=== PATIENT | female | born 1945 | race Caucasian/White ===

== ENCOUNTER 2021-10-03 13:24 | Inpatient (IN) | payer MEDICAID, OTHER ==
[~2021-10-03] VITALS: Ht 167.6 cm; Wt 118.4 kg
[2021-10-03] MEDS ORDERED: ALUM & MAG HYDROX-SIMETH LIQ(MAALOX) 30 ML PO ONE (14:00)
[2021-10-03] MEDS ORDERED: ONDANSETRON HCL 4 MG/2 ML VIAL IV ONE (14:00)
[2021-10-03] MEDS ORDERED: LIDOCAINE VISCOUS 2% 15ML UD PO ONE (14:00)
[2021-10-03] MEDS ORDERED: FAMOTIDINE (10MG/ML) 2ML VL IV ONE (14:00)
[2021-10-03 14:43] LABS: Basophils # (auto) 0 10 ^3/uL (0-0.2); Eosinophils # (auto) 0 10 ^3/uL (0-0.8); Hematocrit 56.9 % (36.0-46.0); Hemoglobin 18.9 g/dL (12.2-16.2); Lymphocytes # (auto) 0.9 10 ^3/uL (0.4-5.4); Lymphocytes % (auto) 7.5 % (10.0-50.0); Mean Corpuscular Hemoglobin 27.1 pg (28.0-32.0); Mean Corpuscular Hgb Conc. 33.2 g/dL (32.0-36.0); Mean Corpuscular Volume 81.7 fL (80.0-100.0); Monocytes # (auto) 1.1 10 ^3/uL (0-1.3); Monocytes % (auto) 8.6 % (0.0-12.0); Neutrophils # (auto) 10.6 10 ^3/uL (1.6-8.6); Neutrophils % (auto) 83.9 % (37.0-80.0); Nucleated Red Blood Cells % 0.1 %; Red Blood Cells 6.96 10^6/uL (4.0-5.20); Red Cell Distribution Width 15.1 % (11.8-14.3); White Blood Cell 12.6 10^3/uL (4.4-10.8)
[2021-10-03] MEDS ORDERED: OMNIPAQUE ORAL SOLN 500ml 12mg/ml PO ONE ×2 (14:50→17:05)
[2021-10-03 15:00] LABS: Albumin 3.6 g/dL (3.4-5.0); BUN/Creatinine Ratio 11.6; Calcium 9.3 mg/dL (8.5-10.1); Magnesium 3.3 mg/dL (1.6-2.6); Total Protein 9.5 g/dL (6.4-8.2)
[2021-10-03] MEDS ORDERED: LACTATED RINGER'S 1,000 ML IV ONE ×2 (15:00→15:15)
[2021-10-03 15:09] LABS: Potassium 2.8 mmol/L (3.5-5.1)
[2021-10-03] MEDS ORDERED: SODIUM CHLORIDE 0.9% 1,000 ML IV ONE (15:45)
[2021-10-03] MEDS: POTASSIUM CHL 10MEQ/50ML 50 ML IV SCH ×2 (15:50→16:46)
[2021-10-03 15:53] LABS: Lactic Acid w/Reflex 4.9 mmol/L (0.4-2.0)
[2021-10-03] MEDS ORDERED: DEXTROSE (50%) 50ML SYRG IV PRN (16:30)
[2021-10-03] MEDS ORDERED: PANTOPRAZOLE 40 MG/10 ML VIAL INJ IV ONE (16:30)
[2021-10-03] MEDS ORDERED: MORPHINE SULFATE INJECTION 2 MG/ML SYRG IV PRN (16:30)
[2021-10-03] MEDS ORDERED: NITROGLYCERIN 0.4 MG SL TAB SL PRN (16:30)
[2021-10-03] MEDS ORDERED: POTASSIUM CHL 10MEQ/50ML 50 ML IV SCH (16:30)
[2021-10-03] MEDS: SOD CHL 0.9%/ KCL 40MEQ 1,000 ML IV SCH (16:30)
[2021-10-03 19:06] LABS: BUN/Creatinine Ratio 12.7; Calcium 8.6 mg/dL (8.5-10.1); Potassium 3.3 mmol/L (3.5-5.1)
[2021-10-03 19:06] LABS: Magnesium 2.6 mg/dL (1.6-2.6)
[2021-10-03] MEDS: ACCU-CHEK COMFORT CURVE STRIP VI SCH ×2 (19:08→21:45)
[2021-10-03] MEDS: InsuLIN REG 1unit/0.01ml Soln (100units/ml) SC SCH ×2 (19:12→22:01)
[2021-10-03 19:16] LABS: Phosphorus 10.4 mg/dL (2.5-4.90)
[2021-10-03] MEDS ORDERED: SODIUM CHLORIDE 0.9% 2,000 ML IV ONE (19:45)
[2021-10-03] MEDS ORDERED: CALCIUM ACETATE 667 MG CAP PO ONE (19:45)
[2021-10-03] MEDS ORDERED: cefTRIAXone 1GM/50ML D5W 50 ML IV ONE (20:00)
[2021-10-03] MEDS ORDERED: metroNIDAZOLE 500MG/100ML 100 ML IV ONE (20:00)
[2021-10-03] MEDS ORDERED: LORazepam 0.5 MG TAB PO PRN (20:15)
[2021-10-03] MEDS ORDERED: DOCUSATE SOD 100 MG CAP PO PRN (20:15)
[2021-10-03] MEDS ORDERED: LACTULOSE 20Gm/30ML SOLN PO PRN (20:15)
[2021-10-03] MEDS ORDERED: ONDANSETRON HCL 4 MG/2 ML VIAL IV PRN (20:15)
[2021-10-03] MEDS ORDERED: HYDROcodone-ACET 5/325MG TAB PO ONE (20:15)
[2021-10-03] MEDS ORDERED: HYDROcodone-ACET 5/325MG TAB PO PRN ×2 (20:15)
[2021-10-03] MEDS ORDERED: IPRATROPIUM BROM 0.5 MG/2.5ML INH SOL NEB ONE (20:15)
[2021-10-03] MEDS ORDERED: hydrALAZINE HCL 20 MG/ML VL IV PRN (20:15)
[2021-10-03 20:21] LABS: Urine Amorphous Crystal FEW /hpf (None Seen); Urine Bacteria NONE SEEN /hpf (None Seen); Urine Blood 2+ /uL (Negative); Urine Hyaline Cast FEW /lpf (0 - 2); Urine Mucus FEW (None Seen); Urine Specific Gravity 1.016 (1.001-1.035); Urine WBC 3 /hpf (0 - 5); Urine WBC Clumps PRESENT /hpf (None Seen)
[2021-10-03 20:52] LABS: Amphetamine Screen, Urine NEGATIVE (NEGATIVE); Barbiturate Scree,Urine NEGATIVE (NEGATIVE); Benzodiazephine Screen, Urine NEGATIVE (NEGATIVE); Cannabinoid Screen, Urine NEGATIVE (NEGATIVE); Cocaine Screen, Urine NEGATIVE (NEGATIVE); Opiate Scree,Urine NEGATIVE (NEGATIVE); Phencyclidine Screen, Urine NEGATIVE (NEGATIVE)
[2021-10-03 21:21] LABS: Protein, Urine 245.7 mg/dL (0.0-11.9)
[2021-10-03] MEDS: ATORVASTATIN 20 MG TAB PO SCH (22:00)
[2021-10-03] MEDS: IPRATROPIUM BROM 0.5 MG/2.5ML INH SOL NEB SCH (22:04)
[2021-10-03] MEDS: PANTOPRAZOLE 40 MG/10 ML VIAL INJ IV SCH (22:05)
[2021-10-03 22:21] LABS: INR 1.07 (0.9-1.15); Partial Thromboplastin Time 26.6 sec (23.6-33.0)
[2021-10-03 23:00] VITALS: BP_SYST 113; BP_SYST 132; BP_DIAS 54; BP_DIAS 65
[2021-10-04] MEDS ORDERED: IBUP400T22 PO (01:02)
[2021-10-04] MEDS: IPRATROPIUM BROM 0.5 MG/2.5ML INH SOL NEB SCH ×2 (01:22→05:58)
[2021-10-04] MEDS: SOD CHL 0.9%/ KCL 40MEQ 1,000 ML IV SCH ×2 (01:50→09:10)
[2021-10-04] MEDS: metroNIDAZOLE 500MG/100ML 100 ML IV SCH ×3 (04:14→21:09)
[2021-10-04 05:00] VITALS: BP 123/58
[2021-10-04] MEDS: InsuLIN REG 1unit/0.01ml Soln (100units/ml) SC SCH ×4 (06:06→22:00)
[2021-10-04] MEDS: ACCU-CHEK COMFORT CURVE STRIP VI SCH ×4 (06:07→22:20)
[2021-10-04 07:55] LABS: Hematocrit 47.8 % (36.0-46.0); Hemoglobin 16.2 g/dL (12.2-16.2); Mean Corpuscular Hemoglobin 27.5 pg (28.0-32.0); Mean Corpuscular Hgb Conc. 33.9 g/dL (32.0-36.0); Mean Corpuscular Volume 80.9 fL (80.0-100.0); Red Cell Distribution Width 14.7 % (11.8-14.3); White Blood Cell 10.3 10^3/uL (4.4-10.8)
[2021-10-04 07:56] LABS: Basophils % (manual) 0 (0.0-2.0); Blast Cells 0; Eosinophils % (manual) 0 (0-7); Metamyelocytes % 0; Myelocytes % 0; Promyelocytes % 0; Reactive Lymphocytes 0
[2021-10-04 08:12] LABS: Albumin 2.2 g/dL (3.4-5.0)
[2021-10-04 08:18] LABS: INR 1.09 (0.9-1.15); Partial Thromboplastin Time 26.8 sec (23.6-33.0)
[2021-10-04 08:21] LABS: Bilirubin, Total 0.5 mg/dL (0.2-1.0); CRP High Sensitivity 10.6 mg/dL (< 0.3); Phosphorus 7.7 mg/dL (2.5-4.90); Total Protein 5.7 g/dL (6.4-8.2); Uric Acid 16.3 mg/dL (2.6-6.0)
[2021-10-04] MEDS: CALCIUM ACETATE 667 MG CAP PO SCH ×3 (08:24→18:00)
[2021-10-04 08:25] VITALS: BP 125/80
[2021-10-04] MEDS: cefTRIAXone 1GM/50ML D5W 50 ML IV SCH (08:25)
[2021-10-04 08:37] LABS: Band Neutrophils % (manual) 10; Lymphocytes % (manual) 9 (10.0-50.0); Monocytes % (manual) 9 (0-12)
[2021-10-04 09:00] VITALS: BP 125/80
[2021-10-04] MEDS: PANTOPRAZOLE 40 MG/10 ML VIAL INJ IV SCH ×2 (10:24→21:10)
[2021-10-04] MEDS: ASPirin 81 mg TAB PO SCH (10:24)
[2021-10-04] MEDS: ENOXAPARIN SOD 30 MG/0.3 ML SYRINGE SC SCH (10:25)
[2021-10-04 15:08] LABS: BUN/Creatinine Ratio 15.5; Calcium 8.6 mg/dL (8.5-10.1); Potassium 3.8 mmol/L (3.5-5.1)
[2021-10-04] MEDS ORDERED: SODIUM CHLORIDE 0.9% 1,000 ML IV SCH (16:45)
[2021-10-04] MEDS ORDERED: FUROSEMIDE 100 MG/10ML VIAL IV ONE (16:45)
[2021-10-04] MEDS: POTASSIUM CHL 10MEQ/50ML 50 ML IV SCH ×3 (16:55→21:45)
[2021-10-04 17:00] VITALS: BP 122/54
[2021-10-04] MEDS: ATORVASTATIN 20 MG TAB PO SCH (21:10)
[2021-10-04 21:30] VITALS: BP 113/56
[2021-10-04] MEDS: SODIUM CHLORIDE 0.9% 1,000 ML IV SCH (21:44)
[2021-10-05] VITALS (9 sets, daily range): BP systolic 108–151; BP diastolic 58–67
[2021-10-05] MEDS: InsuLIN REG 1unit/0.01ml Soln (100units/ml) SC SCH ×4 (06:55→22:00)
[2021-10-05] MEDS: ACCU-CHEK COMFORT CURVE STRIP VI SCH ×4 (06:58→22:00)
[2021-10-05] MEDS: metroNIDAZOLE 500MG/100ML 100 ML IV SCH ×3 (06:58→18:28)
[2021-10-05] MEDS: SODIUM CHLORIDE 0.9% 1,000 ML IV SCH ×2 (07:00→17:55)
[2021-10-05] MEDS: cefTRIAXone 1GM/50ML D5W 50 ML IV SCH (08:32)
[2021-10-05] MEDS: CALCIUM ACETATE 667 MG CAP PO SCH ×3 (08:32→18:00)
[2021-10-05] MEDS: PANTOPRAZOLE 40 MG/10 ML VIAL INJ IV SCH ×2 (09:29→23:24)
[2021-10-05] MEDS: ENOXAPARIN SOD 30 MG/0.3 ML SYRINGE SC SCH (09:30)
[2021-10-05] MEDS: ASPirin 81 mg TAB PO SCH (09:30)
[2021-10-05 10:22] LABS: Anion Gap 13 (5-15); BUN/Creatinine Ratio 19.8; Calcium 8.3 mg/dL (8.5-10.1); Carbon Dioxide 22 mmol/L (21-32); Chloride 95 mmol/L (98-107); GFR African American 9 mL/min; GFR Non-African American 7 mL/min; Glucose 108 mg/dL (74-106); Potassium 3.6 mmol/L (3.5-5.1); Sodium 130 mmol/L (136-145)
[2021-10-05 10:31] LABS: Blood Urea Nitrogen 118 mg/dL (7-18)
[2021-10-05] MEDS ORDERED: MIDAZOLAM HCL 2MG/2ML 2ml VIAL (1mg/ml) ONE (14:33)
[2021-10-05] MEDS ORDERED: fentaNYL CITRATE 5 ML ONE (14:33)
[2021-10-05] MEDS ORDERED: fentaNYL CITRATE 100 MCG/2 ML VL ONE (14:48)
[2021-10-05] MEDS ORDERED: HYDROmorphone HCL 2 MG/ML VL ONE (15:09)
[2021-10-05] MEDS ORDERED: SUCCINYLCHOLINE CHLORIDE 20 MG/ML 10ML VIAL IV ONE (15:22)
[2021-10-05] MEDS ORDERED: ROCURONIUM 10MG/ML 10ML VIAL IV ONE (15:23)
[2021-10-05] MEDS ORDERED: PHENYLEPHRINE HCL 10 MG/ML VL IV ONE (15:34)
[2021-10-05] MEDS ORDERED: ETOMIDATE (2MG/ML) 20ML VIAL IV ONE (15:34)
[2021-10-05] MEDS ORDERED: POVIDONE IODINE 10 % TOPICAL OINT 30GM TOP ONE (17:22)
[2021-10-05] MEDS ORDERED: MIDAZOLAM DRIP 50 mg/50mL 50 ML IV ONE (17:28)
[2021-10-05] MEDS: NOREPINEPHRINE 8 MG/250ML KIT 250 ML IV SCH (17:30)
[2021-10-05] MEDS: MIDAZOLAM DRIP 50 mg/50mL 50 ML IV SCH ×2 (18:00→22:20)
[2021-10-05] MEDS: ATORVASTATIN 20 MG TAB PO SCH (22:00)
[2021-10-05] MEDS: MORPHINE SULFATE INJECTION 2 MG/ML SYRG IV PRN (22:21)
[2021-10-05 22:29] LABS: BUN/Creatinine Ratio 24.5; Calcium 8.3 mg/dL (8.5-10.1); Magnesium 2.3 mg/dL (1.6-2.6); Potassium 3.4 mmol/L (3.5-5.1)
[2021-10-05 22:34] LABS: Basophils # (auto) 0.2 10 ^3/uL (0-0.2); Basophils % (auto) 1.7 % (0.0-2.0); Eosinophils # (auto) 0.1 10 ^3/uL (0-0.8); Eosinophils % (auto) 0.5 % (0.0-7.0); Hemoglobin 16.7 g/dL (12.2-16.2); Lymphocytes # (auto) 0.9 10 ^3/uL (0.4-5.4); Lymphocytes % (auto) 6.9 % (10.0-50.0); Mean Corpuscular Hemoglobin 27.4 pg (28.0-32.0); Mean Corpuscular Hgb Conc. 32.2 g/dL (32.0-36.0); Monocytes # (auto) 1.9 10 ^3/uL (0-1.3); Monocytes % (auto) 14.7 % (0.0-12.0); Neutrophils # (auto) 10.1 10 ^3/uL (1.6-8.6); Neutrophils % (auto) 76.2 % (37.0-80.0); Red Blood Cells 6.11 10^6/uL (4.0-5.20); Red Cell Distribution Width 14.7 % (11.8-14.3); White Blood Cell 13.3 10^3/uL (4.4-10.8)
[2021-10-05] MEDS: fentaNYL Drip 2500mCg/250mlNS 250 ML IV SCH (22:36)
[2021-10-06] VITALS (60 sets, daily range): BP systolic 61–140; BP diastolic 50–79
[2021-10-06] MEDS: SODIUM CHLORIDE 0.9% 1,000 ML IV SCH ×4 (02:21→19:30)
[2021-10-06 03:57] LABS: Calcium 8.2 mg/dL (8.5-10.1); Potassium 3.5 mmol/L (3.5-5.1)
[2021-10-06 04:00] LABS: BUN/Creatinine Ratio 24.9
[2021-10-06] MEDS: metroNIDAZOLE 500MG/100ML 100 ML IV SCH ×3 (05:00→20:34)
[2021-10-06] MEDS: ACCU-CHEK COMFORT CURVE STRIP VI SCH ×4 (07:00→22:09)
[2021-10-06] MEDS: InsuLIN REG 1unit/0.01ml Soln (100units/ml) SC SCH ×4 (07:00→22:00)
[2021-10-06] MEDS: MIDAZOLAM DRIP 50 mg/50mL 50 ML IV SCH (07:10)
[2021-10-06] MEDS: CALCIUM ACETATE 667 MG CAP PO SCH ×3 (08:00→17:52)
[2021-10-06] MEDS: ASPirin 81 mg TAB PO SCH (10:00)
[2021-10-06] MEDS: cefTRIAXone 1GM/50ML D5W 50 ML IV SCH (10:09)
[2021-10-06] MEDS: PANTOPRAZOLE 40 MG/10 ML VIAL INJ IV SCH ×2 (10:12→22:09)
[2021-10-06] MEDS: ENOXAPARIN SOD 30 MG/0.3 ML SYRINGE SC SCH (10:12)
[2021-10-06 11:06] LABS: Hematocrit 45.8 % (36.0-46.0); Hemoglobin 14.6 g/dL (12.2-16.2); Mean Corpuscular Hemoglobin 27.4 pg (28.0-32.0); Mean Corpuscular Volume 85.6 fL (80.0-100.0); Red Blood Cells 5.35 10^6/uL (4.0-5.20); Red Cell Distribution Width 14.9 % (11.8-14.3); White Blood Cell 12.8 10^3/uL (4.4-10.8)
[2021-10-06 11:09] LABS: Basophils % (manual) 0 (0.0-2.0); Blast Cells 0; Eosinophils % (manual) 0 (0-7); Metamyelocytes % 0; Myelocytes % 0; Promyelocytes % 0; Reactive Lymphocytes 0
[2021-10-06 13:53] LABS: Band Neutrophils % (manual) 11; Lymphocytes % (manual) 5 (10.0-50.0); Monocytes % (manual) 11 (0-12)
[2021-10-06] MEDS: MORPHINE SULFATE INJECTION 2 MG/ML SYRG IV PRN (15:28)
[2021-10-06] MEDS: NOREPINEPHRINE 8 MG/250ML KIT 250 ML IV SCH (17:30)
[2021-10-06] MEDS: ATORVASTATIN 20 MG TAB PO SCH (20:31)
[2021-10-06] MEDS: fentaNYL Drip 2500mCg/250mlNS 250 ML IV SCH (22:30)
[2021-10-07] VITALS (14 sets, daily range): BP systolic 94–145; BP diastolic 17–78
[2021-10-07 03:54] LABS: Hemoglobin 13.6 g/dL (12.2-16.2); Mean Corpuscular Hemoglobin 27.5 pg (28.0-32.0); Mean Corpuscular Hgb Conc. 33.1 g/dL (32.0-36.0); Mean Corpuscular Volume 83.1 fL (80.0-100.0); Red Blood Cells 4.94 10^6/uL (4.0-5.20); Red Cell Distribution Width 14.9 % (11.8-14.3)
[2021-10-07 03:58] LABS: Basophils % (manual) 0 (0.0-2.0); Blast Cells 0; Metamyelocytes % 0; Myelocytes % 0; Promyelocytes % 0; Reactive Lymphocytes 0
[2021-10-07 04:01] LABS: BUN/Creatinine Ratio 30.6; Calcium 8.4 mg/dL (8.5-10.1); Potassium 3.1 mmol/L (3.5-5.1)
[2021-10-07] MEDS: metroNIDAZOLE 500MG/100ML 100 ML IV SCH ×3 (04:28→23:42)
[2021-10-07] MEDS: ACCU-CHEK COMFORT CURVE STRIP VI SCH ×4 (06:49→23:42)
[2021-10-07] MEDS: InsuLIN REG 1unit/0.01ml Soln (100units/ml) SC SCH ×4 (06:49→22:00)
[2021-10-07] MEDS: CALCIUM ACETATE 667 MG CAP PO SCH ×3 (08:00→18:00)
[2021-10-07] MEDS: cefTRIAXone 1GM/50ML D5W 50 ML IV SCH (09:23)
[2021-10-07] MEDS: PANTOPRAZOLE 40 MG/10 ML VIAL INJ IV SCH ×2 (09:37→23:41)
[2021-10-07] MEDS: SODIUM CHLORIDE 0.9% 1,000 ML IV SCH (09:37)
[2021-10-07] MEDS: ASPirin 81 mg TAB PO SCH (09:38)
[2021-10-07] MEDS: ENOXAPARIN SOD 30 MG/0.3 ML SYRINGE SC SCH (09:38)
[2021-10-07] MEDS: POTASSIUM CHL 10MEQ/50ML 50 ML IV SCH ×4 (10:57→13:10)
[2021-10-07] MEDS: SOD CHL 0.45% 1,000 ML IV SCH ×2 (10:59→18:00)
[2021-10-07 14:24] LABS: Band Neutrophils % (manual) 4; Eosinophils % (manual) 4 (0-7); Lymphocytes % (manual) 9 (10.0-50.0); Monocytes % (manual) 11 (0-12)
[2021-10-07] MEDS: ATORVASTATIN 20 MG TAB PO SCH (23:41)
[2021-10-08] MEDS: SOD CHL 0.45% 1,000 ML IV SCH (02:00)
[2021-10-08 05:00] VITALS: BP 146/75
[2021-10-08 06:23] LABS: Basophils # (auto) 0 10 ^3/uL (0-0.2); Basophils % (auto) 0.2 % (0.0-2.0); Eosinophils # (auto) 0.4 10 ^3/uL (0-0.8); Eosinophils % (auto) 4.5 % (0.0-7.0); Hematocrit 39.4 % (36.0-46.0); Hemoglobin 13.3 g/dL (12.2-16.2); Lymphocytes # (auto) 0.7 10 ^3/uL (0.4-5.4); Lymphocytes % (auto) 7.8 % (10.0-50.0); Mean Corpuscular Hemoglobin 27.9 pg (28.0-32.0); Mean Corpuscular Hgb Conc. 33.7 g/dL (32.0-36.0); Mean Corpuscular Volume 82.7 fL (80.0-100.0); Monocytes # (auto) 0.9 10 ^3/uL (0-1.3); Monocytes % (auto) 10.9 % (0.0-12.0); Neutrophils # (auto) 6.6 10 ^3/uL (1.6-8.6); Neutrophils % (auto) 76.6 % (37.0-80.0); Red Blood Cells 4.77 10^6/uL (4.0-5.20); Red Cell Distribution Width 15.2 % (11.8-14.3); White Blood Cell 8.6 10^3/uL (4.4-10.8)
[2021-10-08 06:37] LABS: Calcium 8.6 mg/dL (8.5-10.1); Potassium 3.4 mmol/L (3.5-5.1)
[2021-10-08] MEDS: metroNIDAZOLE 500MG/100ML 100 ML IV SCH ×3 (06:38→21:56)
[2021-10-08 06:39] LABS: BUN/Creatinine Ratio 34.5
[2021-10-08] MEDS: ACCU-CHEK COMFORT CURVE STRIP VI SCH ×4 (07:19→23:10)
[2021-10-08] MEDS: InsuLIN REG 1unit/0.01ml Soln (100units/ml) SC SCH ×4 (08:01→22:00)
[2021-10-08 08:30] VITALS: BP 139/83
[2021-10-08] MEDS: ASPirin 81 mg TAB PO SCH (10:00)
[2021-10-08] MEDS: CALCIUM ACETATE 667 MG CAP PO SCH ×3 (10:07→17:22)
[2021-10-08] MEDS: PANTOPRAZOLE 40 MG/10 ML VIAL INJ IV SCH ×2 (10:08→23:10)
[2021-10-08] MEDS: cefTRIAXone 1GM/50ML D5W 50 ML IV SCH (10:08)
[2021-10-08] MEDS: ENOXAPARIN SOD 30 MG/0.3 ML SYRINGE SC SCH (10:08)
[2021-10-08] MEDS ORDERED: POTASSIUM CHL 10MEQ/50ML 50 ML IV ONE ×3 (11:15→15:25)
[2021-10-08 12:00] VITALS: BP 148/88
[2021-10-08] MEDS: D5W 5% 1,000 ML IV SCH ×2 (13:09→21:56)
[2021-10-08 16:24] VITALS: BP 165/89
[2021-10-08 17:46] VITALS: BP 151/84
[2021-10-08 22:00] VITALS: BP 148/71
[2021-10-08] MEDS: ATORVASTATIN 20 MG TAB PO SCH (23:10)
[2021-10-09] MEDS: D5W 5% 1,000 ML IV SCH ×3 (03:15→19:15)
[2021-10-09 05:00] VITALS: BP 132/63
[2021-10-09] MEDS: metroNIDAZOLE 500MG/100ML 100 ML IV SCH ×3 (05:00→22:03)
[2021-10-09 06:08] LABS: Basophils # (auto) 0 10 ^3/uL (0-0.2); Basophils % (auto) 0.2 % (0.0-2.0); Eosinophils # (auto) 0.4 10 ^3/uL (0-0.8); Eosinophils % (auto) 5.2 % (0.0-7.0); Hematocrit 37.3 % (36.0-46.0); Hemoglobin 12.3 g/dL (12.2-16.2); Lymphocytes # (auto) 0.8 10 ^3/uL (0.4-5.4); Lymphocytes % (auto) 9.6 % (10.0-50.0); Mean Corpuscular Hemoglobin 27.7 pg (28.0-32.0); Mean Corpuscular Hgb Conc. 33.1 g/dL (32.0-36.0); Mean Corpuscular Volume 83.5 fL (80.0-100.0); Monocytes # (auto) 0.9 10 ^3/uL (0-1.3); Monocytes % (auto) 11.1 % (0.0-12.0); Neutrophils # (auto) 5.9 10 ^3/uL (1.6-8.6); Neutrophils % (auto) 73.9 % (37.0-80.0); Red Blood Cells 4.46 10^6/uL (4.0-5.20); Red Cell Distribution Width 14.9 % (11.8-14.3)
[2021-10-09 06:22] LABS: Chloride 116 mmol/L (98-107); Potassium 3.5 mmol/L (3.5-5.1); Sodium 148 mmol/L (136-145)
[2021-10-09 06:25] LABS: Anion Gap 6 (5-15); BUN/Creatinine Ratio 30.6; Blood Urea Nitrogen 26 mg/dL (7-18); Calcium 8.1 mg/dL (8.5-10.1); Carbon Dioxide 26 mmol/L (21-32); GFR African American 84 mL/min; GFR Non-African American 69 mL/min; Glucose 177 mg/dL (74-106)
[2021-10-09] MEDS: ACCU-CHEK COMFORT CURVE STRIP VI SCH ×4 (07:07→23:16)
[2021-10-09] MEDS: CALCIUM ACETATE 667 MG CAP PO SCH ×3 (08:00→18:00)
[2021-10-09 09:00] VITALS: BP 139/70
[2021-10-09] MEDS: cefTRIAXone 1GM/50ML D5W 50 ML IV SCH (09:00)
[2021-10-09] MEDS: PANTOPRAZOLE 40 MG/10 ML VIAL INJ IV SCH ×2 (10:00→23:16)
[2021-10-09] MEDS: ASPirin 81 mg TAB PO SCH (10:00)
[2021-10-09] MEDS: ENOXAPARIN SOD 30 MG/0.3 ML SYRINGE SC SCH (10:00)
[2021-10-09] MEDS: InsuLIN REG 1unit/0.01ml Soln (100units/ml) SC SCH ×4 (10:30→22:00)
[2021-10-09 12:35] VITALS: BP 118/75
[2021-10-09 17:07] VITALS: BP 172/61
[2021-10-09 22:15] VITALS: BP 153/82
[2021-10-09] MEDS: ATORVASTATIN 20 MG TAB PO SCH (23:16)
[2021-10-10] MEDS: D5W 5% 1,000 ML IV SCH ×2 (03:15→11:15)
[2021-10-10 05:36] LABS: Basophils # (auto) 0 10 ^3/uL (0-0.2); Basophils % (auto) 0.2 % (0.0-2.0); Eosinophils # (auto) 0.4 10 ^3/uL (0-0.8); Eosinophils % (auto) 4.6 % (0.0-7.0); Hematocrit 37.7 % (36.0-46.0); Hemoglobin 12.9 g/dL (12.2-16.2); Lymphocytes # (auto) 1.2 10 ^3/uL (0.4-5.4); Lymphocytes % (auto) 12.1 % (10.0-50.0); Mean Corpuscular Hemoglobin 28.2 pg (28.0-32.0); Mean Corpuscular Hgb Conc. 34.2 g/dL (32.0-36.0); Mean Corpuscular Volume 82.4 fL (80.0-100.0); Monocytes % (auto) 10.1 % (0.0-12.0); Neutrophils # (auto) 7.1 10 ^3/uL (1.6-8.6); Nucleated Red Blood Cells % 0.1 %; Red Blood Cells 4.57 10^6/uL (4.0-5.20); Red Cell Distribution Width 14.5 % (11.8-14.3); White Blood Cell 9.7 10^3/uL (4.4-10.8)
[2021-10-10 05:39] VITALS: BP 135/82
[2021-10-10 05:58] LABS: Potassium 3.3 mmol/L (3.5-5.1)
[2021-10-10 06:03] LABS: BUN/Creatinine Ratio 21.9; Calcium 7.9 mg/dL (8.5-10.1)
[2021-10-10] MEDS: metroNIDAZOLE 500MG/100ML 100 ML IV SCH ×3 (06:25→21:18)
[2021-10-10] MEDS: InsuLIN REG 1unit/0.01ml Soln (100units/ml) SC SCH ×4 (07:00→22:00)
[2021-10-10] MEDS: ACCU-CHEK COMFORT CURVE STRIP VI SCH ×4 (07:18→22:22)
[2021-10-10] MEDS: CALCIUM ACETATE 667 MG CAP PO SCH (08:00)
[2021-10-10] MEDS ORDERED: GASTROGRAFIN 120 ML SOL ONE (08:28)
[2021-10-10] MEDS: cefTRIAXone 1GM/50ML D5W 50 ML IV SCH (09:00)
[2021-10-10 09:19] VITALS: BP 136/83
[2021-10-10] MEDS: PANTOPRAZOLE 40 MG/10 ML VIAL INJ IV SCH ×2 (10:00→22:25)
[2021-10-10] MEDS: ENOXAPARIN SOD 30 MG/0.3 ML SYRINGE SC SCH (10:00)
[2021-10-10] MEDS: ASPirin 81 mg TAB PO SCH (10:00)
[2021-10-10] MEDS: SOD CHL 0.45% 1,000 ML IV SCH ×2 (11:45→22:25)
[2021-10-10] MEDS: POTASSIUM CHL 10MEQ/50ML 50 ML IV SCH ×4 (11:45→14:45)
[2021-10-10 12:37] VITALS: BP 128/88
[2021-10-10 16:46] VITALS: BP 135/73
[2021-10-10 22:00] VITALS: BP 141/64
[2021-10-10] MEDS: ATORVASTATIN 20 MG TAB PO SCH (22:25)
[2021-10-11 05:00] VITALS: BP 126/80
[2021-10-11] MEDS: metroNIDAZOLE 500MG/100ML 100 ML IV SCH ×3 (05:00→20:56)
[2021-10-11 06:12] LABS: Basophils # (auto) 0 10 ^3/uL (0-0.2); Basophils % (auto) 0.3 % (0.0-2.0); Eosinophils # (auto) 0.4 10 ^3/uL (0-0.8); Eosinophils % (auto) 4.1 % (0.0-7.0); Hematocrit 38.3 % (36.0-46.0); Hemoglobin 12.9 g/dL (12.2-16.2); Lymphocytes # (auto) 1.3 10 ^3/uL (0.4-5.4); Lymphocytes % (auto) 12.4 % (10.0-50.0); Mean Corpuscular Hemoglobin 27.9 pg (28.0-32.0); Mean Corpuscular Hgb Conc. 33.7 g/dL (32.0-36.0); Mean Corpuscular Volume 82.9 fL (80.0-100.0); Monocytes # (auto) 0.9 10 ^3/uL (0-1.3); Monocytes % (auto) 9.2 % (0.0-12.0); Neutrophils # (auto) 7.6 10 ^3/uL (1.6-8.6); Red Blood Cells 4.63 10^6/uL (4.0-5.20); Red Cell Distribution Width 14.6 % (11.8-14.3); White Blood Cell 10.3 10^3/uL (4.4-10.8)
[2021-10-11] MEDS: InsuLIN REG 1unit/0.01ml Soln (100units/ml) SC SCH ×4 (07:00→21:03)
[2021-10-11] MEDS: ACCU-CHEK COMFORT CURVE STRIP VI SCH ×4 (07:09→21:04)
[2021-10-11] MEDS: cefTRIAXone 1GM/50ML D5W 50 ML IV SCH (10:13)
[2021-10-11] MEDS: SOD CHL 0.45% 1,000 ML IV SCH ×2 (10:13→17:29)
[2021-10-11] MEDS: ENOXAPARIN SOD 30 MG/0.3 ML SYRINGE SC SCH (10:13)
[2021-10-11] MEDS: ASPirin 81 mg TAB PO SCH (10:13)
[2021-10-11] MEDS: PANTOPRAZOLE 40 MG/10 ML VIAL INJ IV SCH ×2 (10:13→21:24)
[2021-10-11] MEDS: ATORVASTATIN 20 MG TAB PO SCH (21:24)
[2021-10-11 22:00] VITALS: BP 138/73
[2021-10-12] MEDS: SOD CHL 0.45% 1,000 ML IV SCH ×3 (00:06→23:53)
[2021-10-12] MEDS: metroNIDAZOLE 500MG/100ML 100 ML IV SCH ×3 (04:03→21:30)
[2021-10-12 05:00] VITALS: BP 125/52
[2021-10-12] MEDS: InsuLIN REG 1unit/0.01ml Soln (100units/ml) SC SCH ×4 (06:05→22:00)
[2021-10-12] MEDS: ACCU-CHEK COMFORT CURVE STRIP VI SCH ×4 (06:05→22:02)
[2021-10-12 08:00] VITALS: BP 139/76
[2021-10-12] MEDS: cefTRIAXone 1GM/50ML D5W 50 ML IV SCH (10:11)
[2021-10-12] MEDS: ASPirin 81 mg TAB PO SCH (10:11)
[2021-10-12] MEDS: PANTOPRAZOLE 40 MG/10 ML VIAL INJ IV SCH ×2 (10:11→21:30)
[2021-10-12] MEDS: ENOXAPARIN SOD 30 MG/0.3 ML SYRINGE SC SCH (10:12)
[2021-10-12 12:00] VITALS: BP 127/60
[2021-10-12 17:00] VITALS: BP 139/80
[2021-10-12] MEDS: ATORVASTATIN 20 MG TAB PO SCH (21:30)
[2021-10-12 22:00] VITALS: BP 108/70
[2021-10-13] MEDS: metroNIDAZOLE 500MG/100ML 100 ML IV SCH ×3 (04:20→21:13)
[2021-10-13 05:00] VITALS: BP 113/64
[2021-10-13] MEDS: ACCU-CHEK COMFORT CURVE STRIP VI SCH ×4 (06:03→22:11)
[2021-10-13] MEDS: InsuLIN REG 1unit/0.01ml Soln (100units/ml) SC SCH ×4 (06:04→22:00)
[2021-10-13 08:00] VITALS: BP 142/82
[2021-10-13] MEDS: cefTRIAXone 1GM/50ML D5W 50 ML IV SCH (09:19)
[2021-10-13] MEDS: ASPirin 81 mg TAB PO SCH (09:20)
[2021-10-13] MEDS: PANTOPRAZOLE 40 MG/10 ML VIAL INJ IV SCH ×2 (09:20→22:02)
[2021-10-13] MEDS: ENOXAPARIN SOD 30 MG/0.3 ML SYRINGE SC SCH (09:20)
[2021-10-13 12:00] VITALS: BP 110/78
[2021-10-13] MEDS: SOD CHL 0.45% 1,000 ML IV SCH ×2 (13:40→19:45)
[2021-10-13 16:00] VITALS: BP 146/71
[2021-10-13] MEDS: ATORVASTATIN 20 MG TAB PO SCH (22:02)
[2021-10-14 04:49] VITALS: BP 111/49
[2021-10-14] MEDS: metroNIDAZOLE 500MG/100ML 100 ML IV SCH (05:00)
[2021-10-14] MEDS: SOD CHL 0.45% 1,000 ML IV SCH (06:18)
[2021-10-14] MEDS: ACCU-CHEK COMFORT CURVE STRIP VI SCH (06:19)
[2021-10-14] MEDS: InsuLIN REG 1unit/0.01ml Soln (100units/ml) SC SCH (06:19)
[2021-10-14] MEDS: cefTRIAXone 1GM/50ML D5W 50 ML IV SCH (09:00)
[2021-10-14] MEDS: ASPirin 81 mg TAB PO SCH (10:00)
[2021-10-14] MEDS: ENOXAPARIN SOD 30 MG/0.3 ML SYRINGE SC SCH (10:00)
[2021-10-14] MEDS: PANTOPRAZOLE 40 MG/10 ML VIAL INJ IV SCH (10:00)
[2021-10-14] MEDS ORDERED: METR500T PO (10:45)
[2021-10-14] MEDS ORDERED: LEVO500T31 PO (10:45)
[2021-10-14 11:03] VITALS: BP 122/76
[2021-10-14 12:00] VITALS: BP 131/80
== END 2021-10-14 13:00 | disposition home or self-care (01) | DRG 710 ==
LOC: ER 13:24 → EDBD 13:24 → TELE 16:23 → TELE-WESTW 22:54 → ICU WEST 10-05 20:48 → TELE-WESTW 10-07 10:27
PROVIDERS: ADMIT Hospitalist; ATTEND Family Medicine
PROC: 05HA33Z Insertion of Infusion Device into Left Brachial Vein, Percutaneous Approach (ICD-10-PCS; 2021-10-03)
PROC: B54NZZA Ultrasonography of Left Upper Extremity Veins, Guidance (ICD-10-PCS; 2021-10-03)
PROC: 0DQ90ZZ Repair Duodenum, Open Approach (ICD-10-PCS; 2021-10-05)
PROC: 0DC80ZZ Extirpation of Matter from Small Intestine, Open Approach (ICD-10-PCS; 2021-10-05)
PROC: 0FT40ZZ Resection of Gallbladder, Open Approach (ICD-10-PCS; 2021-10-05)
PROC: 0D9670Z Drainage of Stomach with Drainage Device, Via Natural or Artificial Opening (ICD-10-PCS; 2021-10-05)
PROC: 5A1935Z Respiratory Ventilation, Less than 24 Consecutive Hours (ICD-10-PCS; 2021-10-05)
PROC: 0BH17EZ Insertion of Endotracheal Airway into Trachea, Via Natural or Artificial Opening (ICD-10-PCS; 2021-10-05)
PROC: 0F1 Hepatobiliary System and Pancreas, Bypass (ICD-10-PCS; principal; 2021-10-05 15:44)
DX: A41.9 Sepsis, unspecified organism (principal); N17.0 Acute kidney failure with tubular necrosis; J96.01 Acute respiratory failure with hypoxia; R65.21 Severe sepsis with septic shock; K56.3 Gallstone ileus; E83.39 Other disorders of phosphorus metabolism; M62.82 Rhabdomyolysis; I21.4 Non-ST elevation (NSTEMI) myocardial infarction; K85.90 Acute pancreatitis without necrosis or infection, unspecified; K83.3 Fistula of bile duct; E87.1 Hypo-osmolality and hyponatremia; E11.43 Type 2 diabetes mellitus with diabetic autonomic (poly)neuropathy; E86.0 Dehydration; E87.6 Hypokalemia; K52.9 Noninfective gastroenteritis and colitis, unspecified; D75.1 Secondary polycythemia; K31.84 Gastroparesis; E66.01 Morbid (severe) obesity due to excess calories; E78.5 Hyperlipidemia, unspecified; E11.21 Type 2 diabetes mellitus with diabetic nephropathy; Z20.822 Contact with and (suspected) exposure to COVID-19; K82.3 Fistula of gallbladder; R79.89 Other specified abnormal findings of blood chemistry; I44.7 Left bundle-branch block, unspecified; I13.10 Hypertensive heart and chronic kidney disease without heart failure, with stage 1 through stage 4 chronic kidney disease, or unspecified chronic kidney disease; E11.22 Type 2 diabetes mellitus with diabetic chronic kidney disease; N18.9 Chronic kidney disease, unspecified; E87.0 Hyperosmolality and hypernatremia; K57.30 Diverticulosis of large intestine without perforation or abscess without bleeding; K80.01 Calculus of gallbladder with acute cholecystitis with obstruction; Z68.39 Body mass index [BMI] 39.0-39.9, adult; Z90.710 Acquired absence of both cervix and uterus; Z91.19 Patient's noncompliance with other medical treatment and regimen
CPT/HCPCS: 36415; 36600; 71045; 74176; 74246; 76705; 76775; 78226; 80048; 80053; 80061; 80307; 81001; 82550; 82570; 82728; 82805; 82962; 83036; 83605; 83615; 83690; 83735; 83880; 83970; 84100; 84133; 84146; 84156; 84300; 84443; 84484; 84550; 85007; 85025; 85027; 85379; 85610; 85652; 85730; 86141; 86850; 86900; 86901; 87040; 87086; 87426; 93005; 93306; 93970; 94003; 94640; 96361; 96365; 96368; 96372; 96375; 97110; 97116; 97163; 97530; 99291; C9113; G0378; J0330; J0696; J1815; J2250; J2405; J3490

== ENCOUNTER 2025-07-20 10:39 | Emergency (ER) | payer MEDICAID ==
[~2025-07-20] VITALS: Ht 167.6 cm; Wt 113.0 kg
[~2025-07-20 10:39] MED LIST: IBUP-1453 PO; LEVO500T31 PO; METR500T PO
[2025-07-20 10:41] VITALS: BP 188/90; PULSE 87; RESP 16; TEMP 98.1; O2SAT 96
--- NOTE | 2025-07-20 11:35 | ED.PDOC ---
History of Present Illness(SKN HPI Comments The patient presented with a bleeding skin tag that has been present for about two years but started causing symptoms in the past week. The patient reported having a skin tag for about two years, which had not previously caused any discomfort. However, in the past week, the skin tag began bleeding off and on and became tender and sore around the area. The patient received mupirocin and Keflex for treatment at urgent care, as advised to manage any potential infection. The patient expressed concern over the condition. Chief Complaint: Wound Check Time Seen by MD: 11:30 History of Present Illness: Nurses Notes, Medications, Allergies Allergies: Coded Allergies: NO KNOWN ALLERGIES (Unverified , 10/03/21) Home Meds Active Scripts Levofloxacin (Levaquin) 500 Mg Tab, 500 MG PO DAILY, #10 TAB Prov:SUZETTE LOPEZ MD 10/14/21 Metronidazole (Flagyl) 500 Mg Tab, 500 MG PO TID, #30 TAB Prov:SUZETTE LOPEZ MD 10/14/21 Reported Medications Ibuprofen (Ibuprofen) 400 Mg Tab, 400 MG PO for Fibromyalgia, MG 10/04/21 Information Source: Patient Mode of Arrival: Ambulatory Severity: Moderate Timing: Other (Two years) Duration: Since onset, Other (Two years) Prehospital treatment: None Location: Other (My forearm) Mechanism: Spontaneous Onset Developed: Other (Skin tag to the left forearm) Object: None Condition of Object: None Wound Type: Other (Skin tag) Tetanus: Unknown History of: None Associated Signs and Symptoms: None Past Medical History PAST MEDICAL HISTORY: Arthritis, HTN Surgical History: Hysterectomy, Tonsillectomy 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 AND DIE TECHNICIAN Hx Family History Family History: Reviewed,noncontributory to illness, Unknown Social History Smoker: Non-Smoker Alcohol: Denies ETOH Use Drugs: Denies Drug Use Lives In: Home Constitutional: denies: chills, diaphoresis, fatigue, fever, malaise, sweats, weakness, others EENTM: denies: blurred vision, double vision, ear bleeding, ear discharge, ear drainage, ear pain, ear ringing, eye pain, eye redness, hearing loss, mouth pain, mouth swelling, nasal discharge, nose bleeding, nose congestion, nose pain, photophobia, tearing, throat pain, throat swelling, voice changes, others Respiratory: denies: cough, hemoptysis, orthopnea, SOB at rest, shortness of breath, SOB with excertion, stridor, wheezing, others Cardiovascular: denies: chest pain, dizzy spells, diaphoresis, Dyspnea on exertion, edema, irregular heart beat, left arm pain, lightheadedness, palpitations, PND, syncope, others Gastrointestinal: denies: abdomen distended, abdominal pain, blood streaked bowels, constipated, diarrhea, dysphagia, difficulty swallowing, hematemesis, melena, nausea, poor appetite, poor fluid intake, rectal bleeding, rectal pain, vomiting, others Genitourinary: denies: abnormal vagina bleeding, burning, dyspareunia, dysuria, flank pain, frequency, hematuria, incontinence, pain, , vagina discharge, urgency, others Neurological: denies: dizziness, fainting, headache, left sided numbness, left sided weakness, numbness, paresthesia, pre-existing deficit, right sided nu mbness, right sided weakness, seizure, speech problems, tingling, tremors, weakness, others Musculoskeletal: denies: back pain, gout, joint pain, joint swelling, muscle pain, muscle stiffness, neck pain, others Integumetry: reports: wounds (Skin tag to the left forearm); denies: bruises, change in color, change in hair/nails, dryness, laceration, lesions, lumps, rash, others Allergic/Immunocompromised: denies: Difficulty Healing, Frequent Infections, Hives, Itching, others Hematologic/Lymphatic: denies: anemia, blood clots, easy bleeding, easy bruising, swollen glands, others Endocrine: denies: excessive hunger, excessive sweating, excessive thirst, excessive urination, flushing, intolerance to cold, intolerance to heat, unexplained weight gain, unexplained weight loss, others Psychiatric: denies: anxiety, bipolar disorder, depression, hopeless, panic disorder, schizophrenia, sleepless, suicidal, others All Other Systems: Reviewed and Negative Physical Exam Exam Comments General Appearance: Forearm noticeable skin tag that is 2 by 2 centimeters. Not actively bleeding. No surrounding erythema. No streaking. No crepitus. Radial pulses 2+. General Appearance: No Apparent Distress, Normal HEENT: Normal ENT Inspection, Pharynx Normal, TMs Normal Neck: Full Range of Motion, Non-Tender, Normal, Normal Inspection Respiratory: Chest Non-Tender, Lungs Clear, No Accessory Muscle Use, No Respiratory Distress, Normal Breath Sounds Cardiovascular: No Edema, No JVD, No Murmur, No Gallop, Normal Peripheral Pulses, Regular Rate/Rhythm Breast Exam: Deferred Gastrointestinal: No Organomegaly, Non Tender, No Pulsatile Mass, Normal Bowel Sounds, Soft Genitalia: Deferred Pelvic: Deferred Rectal: Deferred Extremities: No calf tenderness, Normal capillary refill, Normal inspection, Normal range of motion, Non-tender, No pedal edema Musculoskeletal : Apperance: Normal Neurologic: Alert, it support analyst II-XII nml as Tested, No Motor Deficits, Normal Affect, Normal Mood, No Sensory Deficits Cerebellar Function: Normal Reflexes: Normal Skin: Dry, Normal Color, Warm Lymphatic: No Adenopathy Was a procedure done? Was a procedure done?: No Differential Diagnosis (INTG) Differential Diagnosis: Other X-Ray, Labs, Meds, VS Vital Signs Date Time Temp Pulse Resp B/P (MAP) Pulse Ox O2 Delivery O2 Flow Rate FiO2 07/20/25 10:41 98.1 87 16 188/90 96 98.1 X-Ray, Labs, Meds, VS Comment Patient arrives alert and oriented, ABC's intact, afebrile, vital signs stable, saturating well in room air The patient was assessed with a bleeding skin tag. This condition had been asymptomatic for two years but recently became symptomatic with intermittent bleeding and tenderness. The lack of erythema and streaking indicated no active infection, aligning with the decision to use Keflex prophylactically. The recommended course of treatment was to follow up with dermatology for potential removal, as the condition requires management beyond urgent care capabilities. - Medications: Continued use of Keflex to prevent infection. - Dressing: Applied a nonadherent dressing to the affected area. - Advised the patient to avoid messing with the skin tag and to either keep it covered with gauze or leave it open to air at home to allow drying. - Instructed the patient to contact their primary care doctor for an expedited appointment or direct referral to dermatology. - Suggested the possibility of a telephonic appointment to facilitate a quicker referral to dermatology. Disposition: - The patient was advised to seek a follow-up with their primary care provider, emphasizing the urgency if the condition was documented as an emergency department follow-up. Additional MDM Review of External, Non-ED records: External records reviewed. Discussion with independent historian (EMS, family) history obtained from the patient/parents (if applicable) at bedside Chronic conditions affecting care: None Social determinants of health affecting care: None Consideration of admission (observation or admission): I considered escalation of care to admission for this patient, however given the reassuring workup, the patient is safe for outpatient management. Time of 1ST Reevaluation: 12:00 Reevaluation 1ST: Unchanged Patient Education/Counseling: Diagnosis, Treatment, Prognosis Family Education/Counseling: No Family Present SEPSIS Sepsis Screen Date sepsis recognized/suspect: Jul 20, 2025 Time Sepsis recognized/suspect: 104 Recent Procedure: No On Antibiotic Therapy: No Respiratory Rate >20: No Heart Rate >90: No Temp<36 C (96.8 F) or >38.3 C: No SBP <90 or MAP <65 mmHG: No New Acute Mental Status Change: No Is the patient on CPAP, BIPAP,: No Vital Signs Date Time Temp Pulse Resp B/P (MAP) Pulse Ox O2 Delivery O2 Flow Rate FiO2 07/20/25 10:41 98.1 87 16 188/90 96 98.1 Departure 1 Departure Time of Disposition: 12:01 Impression: Primary Impression: Skin tag Disposition: 01 HOME / SELF CARE / HOMELESS Condition: Stable Discharged With: Self Critical Care Note Critical Care Time?: No Stability Stability form required: No Heart Score Heart Score: Heart Score Response (Comments) Value History N/A 0 EKG N/A 0 Age N/A 0 Risk Factors N/A 0 Troponin N/A 0 Total 0 I personally scribed for YURI BAEZ NP ([email or web address]) on 07/20/25 at 11:35. El ectronically submitted by Gary Mcnally ([email or web address]). YURI BAEZ NP Jul 20, 2025 11:35
== END 2025-07-20 11:48 | disposition home or self-care (01) ==
LOC: ER 10:39
DX: L91.8 Other hypertrophic disorders of the skin (principal); I10 Essential (primary) hypertension; M19.90 Unspecified osteoarthritis, unspecified site; Z90.710 Acquired absence of both cervix and uterus; Z79.899 Other long term (current) drug therapy